=== PATIENT | female | born 1980 | race Caucasian/White ===

== ENCOUNTER 2025-02-07 06:18 | Inpatient (IN) ==
[2025-02-07 06:54] LABS: Hematocrit (blood only) 40.0 % (37.0-47.0); Hemoglobin 14.0 g/dl (12.0-16.0); Immature Granulocytes # (auto) 0.02 K/uL (0.01-0.20); Immature Granulocytes % (auto) 0.3 %; Mean Corpuscular Hemoglobin 32.5 pg (25.0-34.0); Mean Corpuscular Volume 92.8 fL (80.0-100.0); Platelet Count 224 K/uL (130-400); RDW Standard Deviation 46.5 fL (36.4-46.3); Red Blood Count 4.31 M/uL (4.20-5.40); White Blood Count 6.55 K/ul (4.8-10.8)
[2025-02-07 07:11] LABS: Alanine Aminotransferase 179.0 U/L (7-52); Albumin Globulin Ratio 1.6 (0.9-2); Albumin Level 4.3 gm/dl (3.4-5.0); Alkaline Phosphatase 157.0 U/L (34-104); Anion Gap 10.0 (3-11); Bilirubin,Total 0.7 mg/dl (0.2-1.0); Blood Urea Nitrogen 5.0 mg/dl (6-23); Calcium 8.8 mg/dl (8.6-10.3); Carbon Dioxide 25.0 mmol/L (21-32); Chloride 101.0 mmol/L (98-107); Creatinine Clr Calc Pharmacy 99.0 ml/min; Globulin 2.7 gm/dl (2.5-4.0); Glucose 104.0 mg/dl (70-99(Fasting)); Lipase 48.0 U/L (11-82); Potassium 3.9 mmol/L (3.5-5.1); Sodium 136.0 mmol/L (136-145); Total Protein 7.0 gm/dl (6.0-8.3)
--- NOTE | 2025-02-07 07:23 | Emergency Department Note ---
Impression & Plan Alcohol withdrawal, Auditory hallucinations ED Provider Note NAME: STEPHANIE HUANG AGE: 44 SEX: F : 1980 ARRIVES VIA: Walk-In INFORMANT: Patient, ED PROVIDER(S): Marietta Carr MD CHIEF COMPLAINT: Alcohol withdrawal HPI: This is a 44-year-old female with alcohol withdrawal. Patient states that she uses about 15 beers a day. She has noted increasing nausea and vomiting for the past 1 week. She was recently in outside hospital where she was given phenobarbital and Ativan for alcohol withdrawal. She states she has not been to drink her usual amount and is only drinking 6 beers per day. She feels shaky, anxious. She is concerned because she is hearing her parents think she is auditory hallucinations. She reports some slight abdominal pain as result of this. ROS: See above HPI for pertinent positives & negatives. A total of 10 systems reviewed and were otherwise negative. PAST MEDICAL HISTORY: See Below PAST SURGICAL HISTORY: See Below FAMILY HISTORY: See Below SOCIAL HISTORY: See Below HOME MEDICATIONS: See Below ALLERGIES: See Below VITALS: See Below PHYSICAL EXAMINATION: General: resting comfortably in no acute distress, tremulous, disheveled Head: Normocephalic and atraumatic Eyes: Normal inspection, extraocular muscles intact Ear, nose, throat: Normal external exam Neck: Normal range of motion Respiratory: lungs clear to auscultation bilaterally Cardiovascular: Regular rate/rhythm, no murmur GI: soft, nontender, no guarding or rebound Extremities: nontender, moves all extremities Neuro: The patient awake and alert, appropriately conversive, no focal deficits, symmetric faces Skin: Warm, dry, and intact MDM: This is a 44-year-old female presenting for alcohol withdrawal. Patient concerned alcohol withdrawal she is having hallucinations, tremulous. She was seen at outside hospital she had phenobarbital and Ativan. Will do screening blood work to assess for LFTs, lipase and etiology of patient's nausea vomiting and abdominal pain. - Bloodwork is reviewed showing no significant leukocytosis, anemia, electrolyte or creatinine abnormality. Alcohol level 110 -Does have a transaminitis, consistent with alcohol use disorder -Patient given 10 mg of Valium for withdrawal at this time. - Will admit the patient for alcohol withdrawal Differential diagnosis: Alcohol withdrawal, psychosis, schizophrenia Diagnostics interpreted by me: ECG: ECG independently interpreted by me with sinus tachycardia rate of 101 normal VA, normal QRS, normal QTc, no ST segment elevations consistent with STEMI criteria Cardiac Monitoring: An order was placed for continuous cardiac monitoring. The monitor shows a rate of 95 with sinus rhythm. 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 Other pulmonary embolism without acute cor pulmonale Alcohol induced acute pancreatitis Alcohol withdrawal seizure Surgical History (Updated 02/07/25 @ 09:24 by MANGO Holm) History of esophagogastroduodenoscopy (EGD) History of tonsillectomy H/O total hysterectomy Social History Smoking Status: Current every day smoker Tobacco Type: Cigarettes Cigarettes Per Day: 10; Hx Alcohol Use: Yes Alcohol type: beer Hx Substance Use: No Preferred Language: French Communication Ability: Effective 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 Beliefs That Will Affect Care: None Current Living Situation: Significant Other Other Information That Helps Us Care for You: No Feels Safe at Home: Yes Safety Concerns: Feels Safe At This Time Assistive Devices: Denture - Upper Allergies Allergies Allergy/AdvReac Type Severity Reaction Status Date / Time amoxicillin [From Augmentin] Allergy Rash Verified 02/07/25 11:02 clavulanic acid Allergy Rash Verified 02/07/25 11:02 [From Augmentin] Home Meds Home Medications Medication Instructions Recorded Confirmed buspirone 5 mg tablet 5 mg PO TID 02/07/25 02/07/25 doxepin 25 mg capsule 25 mg PO DAILY 02/07/25 02/07/25 duloxetine 30 mg capsule,delayed 30 mg PO DAILY 02/07/25 02/07/25 release escitalopram oxalate 5 mg tablet 5 mg PO DAILY 02/07/25 02/07/25 (Lexapro) fluticasone propionate 50 2 spray intranasal DAILY 02/07/25 02/07/25 mcg/actuation nasal spray,suspension folic acid 1 mg tablet 1 mg PO DAILY 02/07/25 02/07/25 gabapentin 100 mg capsule 100 - 200 mg PO UD 02/07/25 02/07/25 melatonin 5 mg tablet 5 mg PO HS 02/07/25 02/07/25 omeprazole 40 mg capsule,delayed 40 mg PO DAILYBB 02/07/25 02/07/25 release quetiapine 50 mg tablet 200 mg PO HS 02/07/25 02/07/25 Results & Data (ED) Vital Signs Vital Signs - 24 hr 02/07/25 06:22 02/07/25 06:35 02/07/25 06:37 Temperature 36.7 C 37.1 C Temperature Source Oral Axillary Pulse Rate 122 H 110 H Pulse Rate [Right Finger] 102 H Pulse Rhythm [Right Finger] Regular Respiratory Rate 20 16 Respiratory Effort / Characteristics Non-Labored Spontaneous Non-Labored Respiratory Depth Normal Normal Respiratory Pattern Regular Blood Pressure 115/91 Blood Pressure [Right Arm] 133/104 H Blood Pressure Mean 99 Blood Pressure Mean [Right Arm] 113 Blood Pressure Position Sitting Pulse Oximetry 95 95 Oxygen Delivery Method Room Air Room Air Oxygen Flow Rate Sepsis Recent Fever Within 48 Hours No Sepsis New/Unexplained Change in Mental Status N/A Sepsis Action Taken by Nursing No Action Required Oxygen Flow Rate - Titration Pulse Oximetry Post Tiitration 02/07/25 07:11 02/07/25 07:58 02/07/25 09:00 Temperature Temperature Source Pulse Rate Pulse Rate [Right Finger] 107 H 85 Pulse Rhythm [Right Finger] Respiratory Rate 18 18 Respiratory Effort / Characteristics Non-Labored Spontaneous Non-Labored Spontaneous Respiratory Depth Normal Normal Respiratory Pattern Regular Regular Blood Pressure Blood Pressure [Right Arm] 134/98 116/76 Blood Pressure Mean Blood Pressure Mean [Right Arm] 110 89 Blood Pressure Position Pulse Oximetry 92 87 L 100 Oxygen Delivery Method Room Air Room Air Nasal Cannula Room Air Oxygen Flow Rate 0 Sepsis Recent Fever Within 48 Hours Sepsis New/Unexplained Change in Mental Status Sepsis Action Taken by Nursing Oxygen Flow Rate - Titration 2 Pulse Oximetry Post Tiitration 98 02/07/25 10:27 Temperature Temperature Source Pulse Rate Pulse Rate [Right Finger] Pulse Rhythm [Right Finger] Respiratory Rate Respiratory Effort / Characteristics Respiratory Depth Respiratory Pattern Blood Pressure Blood Pressure [Right Arm] Blood Pressure Mean Blood Pressure Mean [Right Arm] Blood Pressure Position Pulse Oximetry 99 Oxygen Delivery Method Nasal Cannula Oxygen Flow Rate 2 Sepsis Recent Fever Within 48 Hours Sepsis New/Unexplained Change in Mental Status Sepsis Action Taken by Nursing Oxygen Flow Rate - Titration Pulse Oximetry Post Tiitration Laboratory Data 02/07/25 06:35 02/07/25 06:35 Lab Results 02/07/25 Range/Units 06:35 WBC 6.55 (4.8-10.8) K/ul RBC 4.31 (4.20-5.40) M/uL Hgb 14.0 (12.0-16.0) g/dl Hct 40.0 (37.0-47.0) % MCV 92.8 (80.0-100.0) fL MCH 32.5 (25.0-34.0) pg MCHC 35.0 (32.0-36.0) g/dL RDW Std Deviation 46.5 H (36.4-46.3) fL RDW Coeff of Barbara 13.6 (11.5-14.5) % Plt Count 224 (130-400) K/uL MPV 9.1 L (9.4-12.4) fL Immature Gran % (Auto) 0.3 % Neut % (Auto) 55.3 % Lymph % (Auto) 33.9 % Sumner % (Auto) 7.0 % Eos % (Auto) 2.4 % Baso % (Auto) 1.1 % Neut # (Auto) 3.62 (1.40-6.50) K/uL Lymph # (Auto) 2.22 (1.20-3.40) K/uL Sumner # (Auto) 0.46 (0.11-0.59) K/uL Eos # (Auto) 0.16 (0.00-0.50) K/uL Baso # (Auto) 0.07 (0.00-0.20) K/uL Immature Gran # (Auto) 0.02 (0.01-0.20) K/uL Sodium 136 (136-145) mmol/L Potassium 3.9 (3.5-5.1) mmol/L Chloride 101 (98-107) mmol/L Carbon Dioxide 25 (21-32) mmol/L Anion Gap 10 (3-11) BUN 5 L (6-23) mg/dl Creatinine 0.64 (0.6-1.2) mg/dl Est Cr Clr Drug Dosing 99.0 ml/min eGFR 110.31 BUN/Creatinine Ratio 7.8 L (10-20) Glucose 104 H (70-99(Fasting)) mg/dl Calcium 8.8 (8.6-10.3) mg/dl Total Bilirubin 0.7 (0.2-1.0) mg/dl AST 363 H (13-39) U/L ALT 179 H (7-52) U/L Alkaline Phosphatase 157 H (34-104) U/L Total Protein 7.0 (6.0-8.3) gm/dl Albumin 4.3 (3.4-5.0) gm/dl Globulin 2.7 (2.5-4.0) gm/dl Albumin/Globulin Ratio 1.6 (0.9-2) Lipase 48 (11-82) U/L Ethyl Alcohol mg/dL 110.2 H (<10.0) mg/dl Administered Medications Ketorolac Tromethamine (Ketorolac Tromethamine 15 Mg/Ml Vial) 10 mg IV NOW PRN PRN Reason: Headache Stop: 02/12/25 11:13 Last Admin: 02/07/25 13:21 Dose: 10 mg Documented By: SHIRA Nicotine (Nicotine 14 Mg/24 Hr Patch) 1 patch TD QAM [facility] 1928–1983 Stop: 03/09/25 12:59 Last Admin: 02/07/25 13:08 Dose: 1 patch Documented By: SHIRA Ondansetron HCl (Ondansetron Inj 2 Mg/Ml 2 Ml Vial) 4 mg IV Q6H PRN PRN Reason: Nausea Stop: 03/09/25 12:45 Last Admin: 02/07/25 13:17 Dose: 4 mg Documented By: SHIRA Phenobarbital Sodium (Phenobarbital Sodium 65 Mg/Ml Vial) 65 mg IM Q3H MORENA Stop: 02/07/25 16:31 Last Admin: 02/07/25 13:12 Dose: 65 mg Documented By: SHIRA Discontinued Medications Diazepam (Diazepam Inj 5 Mg/Ml 2 Ml Carp) 10 mg IV NOW STA Stop: 02/07/25 07:47 Last Admin: 02/07/25 07:57 Dose: 10 mg Documented By: MOIRA Thiamine HCl 100 mg/ Syringe 10 mls @ 2 mls/min IV NOW STA Stop: 02/07/25 10:35 Last Admin: 02/07/25 11:33 Dose: 2 mls/min Documented By: MOIRA Folic Acid 1 mg/ Syringe 10 mls @ 5 mls/min IV NOW STA Stop: 02/07/25 10:32 Last Admin: 02/07/25 11:29 Dose: 5 mls/min Documented By: MOIRA Phenobarbital Sodium (Phenobarbital Sodium 130 Mg/Ml Vial) 130 mg IM NOW STA Stop: 02/07/25 10:27 Last Admin: 02/07/25 11:01 Dose: 130 mg Documented By: MOIRA Discharge Plan Visit Data Chief Complaint: Alcohol Withdrawal Stated Complaint: ALC WITHDRAW, HALLUCIN, DIZZY, SHAKY ED Provider: Marietta Carr Discharge Problem: Alcohol withdrawal, Auditory hallucinations Patient Disposition: Admitted As Inpatient Condition: Fair Discharge Instructions Interventions: ED Discharge Assessment Last Done: 02/07/25 11:42 Discharge Problem: Alcohol withdrawal Qualifiers: Complication of substance-induced condition: with unspecified complication Q ualified Code(s): F10.939 - Alcohol use, unspecified with withdrawal, unspecified
--- NOTE | 2025-02-07 09:01 | History & Physical Report ---
Date of Service February 07, 2025 Assessment & Plan (1) Alcohol withdrawal: (2) Alcohol withdrawal seizure: (3) Auditory hallucinations: (4) Alcoholic hepatitis without ascites: (5) Anxiety disorder: (6) Esophageal reflux: (7) Tobacco use: Plan 44 year old female with PMH significant for alcohol abuse, multiple recent inpatient alcohol detoxifications, history of alcohol withdrawal seizures, history of alcohol induced pancreatitis, fatty liver, depression, anxiety, GERD, tobacco use, and history of PE who presents to the ED on 02/07/2025 for alcohol withdrawal symptoms x6 days. Alcohol withdrawal Hallucinations History of alcohol withdrawal seizures Patient presenting with alcohol withdrawal symptoms x6 days History of multiple recent inpatient alcohol detoxifications - recently admitted from 01/19-01/25/2025 at [facility], discharged on phenobarb taper, never completed as she started drinking again Drinks 10-12 light beers per day Last drink at 2300 on 02/06/2025 Ethyl alcohol level 110 this morning AWSS 8 in ED Start phenobarb protocol with ativan PRN IV folic acid and thiamine today and resume PO tomorrow Alcohol induced hepatitis Fatty liver Elevated LFTs with AST 363, ALT 179, alk phos 157 Likely secondary to alcohol use Monitor CMP Depression and anxiety Continue doxepin, duloxetine, seroquel, buspirone, lexapro Home gabapentin on hold while on phenobarb protocol GERD Continue PPI Tobacco use Nicotine patch Counseled on cessation History of PE CT PE on 01/02 at [facility] revealed tiny PE, placed on Heparin gtt x48 hrs Repeat CT PE on 01/04 revealed no definite PE Not on anticoagulation Follow up with Pulmonary scheduled on 02/21 for repeat imaging DVT Prophylaxis: SQ heparin Code Status: FULL CODE - As per discussion at bedside with the patient. PCP: Ishaan Maradiaga Disposition: admit to PCU Patient seen in collaboration with Dr Azul. Please see addendum. I spent a total of 75 minutes coordinating, documenting and providing care for this patient excluding time spent in the performance of separately billed services or time spent by another provider/QHP. Admission and Anticipated Discharge Date Admission Date: 02/07/2025 History of Present Illness Chief Complaint: alcohol withdrawal Primary Care Provider: Ishaan Maradiaga MD 44 year old female with PMH significant for alcohol abuse, multiple recent inpatient alcohol detoxifications, history of alcohol withdrawal seizures, history of alcohol induced pancreatitis, fatty liver, depression, anxiety, GERD, tobacco use, and history of PE who presents to the ED on 02/07/2025 for alcohol withdrawal symptoms x6 days. Patient reports visual and auditory hallucinations, poor appetite, vomiting, dehydration, tremors, photosensitivity, headache, and anxiety for the last 6 days. She reports she has been drinking 10-12 light beers per day since 01/25/2025 when she was discharged from [facility]. She was admitted there for alcohol withdrawal and was discharged on a phenobarbital taper. She reports she did not complete the taper because she started drinking again as soon as she got home. Notes she has been to rehab before at [facility]. Agreeable to talking to psych because she is not sure why she keeps going back to drinking. Denies blurry vision, chest pain, SOB, abdominal pain, dysuria. Reports she falls often but denies hitting her head. Lives with her boyfriend. Allergies Allergy/AdvReac Type Severity Reaction Status Date / Time amoxicillin [From Augmentin] Allergy Rash Verified 02/07/25 11:02 clavulanic acid Allergy Rash Verified 02/07/25 11:02 [From Augmentin] Home Medications Medication Instructions Recorded Confirmed Type buspirone 5 mg tablet 5 mg PO TID 02/07/25 02/07/25 History doxepin 25 mg capsule 25 mg PO DAILY 02/07/25 02/07/25 History duloxetine 30 mg capsule,delayed 30 mg PO DAILY 02/07/25 02/07/25 History release escitalopram oxalate 5 mg tablet 5 mg PO DAILY 02/07/25 02/07/25 History (Lexapro) fluticasone propionate 50 2 spray intranasal DAILY 02/07/25 02/07/25 History mcg/actuation nasal spray,suspension folic acid 1 mg tablet 1 mg PO DAILY 02/07/25 02/07/25 History gabapentin 100 mg capsule 100 - 200 mg PO UD 02/07/25 02/07/25 History melatonin 5 mg tablet 5 mg PO HS 02/07/25 02/07/25 History omeprazole 40 mg capsule,delayed 40 mg PO DAILYBB 02/07/25 02/07/25 History release quetiapine 50 mg tablet 200 mg PO HS 02/07/25 02/07/25 History Past Med/Surg History Problem List (Updated 02/07/25 @ 09:36 by MANGO Holm) Auditory hallucinations Tobacco use Anxiety disorder Alcoholic hepatitis without ascites Esophageal reflux Alcohol withdrawal Medical History (Updated 02/07/25 @ 09:36 by MANGO Holm) Alcohol use disorder, severe, dependence 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 Other pulmonary embolism without acute cor pulmonale Alcohol induced acute pancreatitis Alcohol withdrawal seizure Surgical History (Updated 02/07/25 @ 09:24 by MANGO Holm) History of esophagogastroduodenoscopy (EGD) History of tonsillectomy H/O total hysterectomy Social History Smoking Status: Current every day smoker Tobacco Type: Cigarettes Cigarettes Per Day: 10; Hx Alcohol Use: Yes Alcohol type: beer Hx Substance Use: No Preferred Language: Serbian Communication Ability: Effective 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 Beliefs That Will Affect Care: None Current Living Situation: Significant Other Other Information That Helps Us Care for You: No Feels Safe at Home: Yes Safety Concerns: Feels Safe At This Time Assistive Devices: Denture - Upper Review of Systems Review of Systems: All systems reviewed & are unremarkable except as noted in HPI & below Physical Exam Physical Exam: General/Psych: WD/WN, sitting up in bed, appears anxious, occasional tremors Head: normocephalic, atraumatic Eyes: normal inspection, PERRL, conjunctivae pink ENT: external ear and nose normal, oropharynx normal Neck: normal visual inspection, trachea midline Respiratory: normal respiratory effort, lungs clear to auscultation, no wheeze/rales/rhonchi, no accessory muscle use Cardiovascular: tachycardic rate and rhythm, no murmur/rub/gallop, no JVD Extremities: no cyanosis or clubbing, normal peripheral pulses, no BLE edema Abdomen/GI: normal bowel sounds, soft, tender on palpation of all quadrants Neurologic/MSK: A+Ox3, motor strength 5/5, moves all extremities Skin: no rashes, normal color, warm and dry Results & Data Results & Data Vital Signs (Past 12 Hours) Vital Signs Temp Pulse Pulse Resp BP BP Pulse Ox 02/07/25 07:58 87 L 02/07/25 07:11 107 H 18 134/98 92 02/07/25 06:37 37.1 C 102 H 16 133/104 H 95 02/07/25 06:35 110 H 02/07/25 06:22 36.7 C 122 H 20 115/91 95 O2 Del Method O2 Flow Rate 02/07/25 07:58 Room Air, Nasal Cannula 0 02/07/25 07:11 Room Air 02/07/25 06:37 Room Air 02/07/25 06:35 02/07/25 06:22 Room Air Laboratory Results Short CBC 02/07/25 Range/Units 06:35 WBC 6.55 (4.8-10.8) K/ul Hgb 14.0 (12.0-16.0) g/dl Hct 40.0 (37.0-47.0) % Plt Count 224 (130-400) K/uL BMP 02/07/25 06:35 Sodium 136 Potassium 3.9 Chloride 101 Carbon Dioxide 25 BUN 5 L Creatinine 0.64 Glucose 104 H Calcium 8.8 Liver Function 02/07/25 Range/Units 06:35 Total Bilirubin 0.7 (0.2-1.0) mg/dl AST 363 H (13-39) U/L ALT 179 H (7-52) U/L Alkaline Phosphatase 157 H (34-104) U/L Albumin 4.3 (3.4-5.0) gm/dl I have independently reviewed and interpreted patient's admitting labs including CBC, CMP, lipase, ethyl alcohol. ECG Additional Comments: I have independently reviewed and interpreted patient's admitting EKG which revealed: sinus tachycardia at a rate of 102bpm Code Status & VTE Plan Code Status Full Code
[2025-02-07] MEDS ORDERED: PHENobarbital PO Alcohol Withdrawal PO STA (10:26)
[2025-02-07] MEDS: FOLIC ACID 1 MG in SYRINGE 9.8 ML IV STA (11:29)
[2025-02-07] MEDS: THIAMINE HCL 100 MG in SYRINGE 9 ML IV STA (11:33)
--- NOTE | 2025-02-07 11:40 | Communication Note ---
Date of Service: February 07, 2025 Attending Addendum: Case reviewed with the advanced practitioner. I have personally performed a history and physical examination on the patient. I have reviewed the advanced practitioner's documentation on the date of service referenced in note, and I agree with, and take responsibility for the plan of care. please refer to her notes for full details patient seen and examined, records reviewed by myself as well on exam, patient seen resting in bed, comfortable RNs at bedside throughout whole encounter states she feels ok has mild anxiety, no active tremors, confusion does report hallucinations since Lexapro and buspirone started 2 weeks ago reports depression symptoms seems to be worsening but denies suicidal ideations no other symptoms VS noted and reviewed oriented x3, not in distress, speaks in sentences with no effort nor accessory muscle use normal rate, regular rhythm, no murmurs clear breath sounds bilaterally non distended, soft, nontender no bipedal edema, erythema, warmth no neuro deficits all labs, imaging noted and reviewed ASSESSMENT AND PLAN> ALCOHOL WITHDRAWAL alcohol withdrawal protocol including Phenobarbital taper DEPRESSION reporting increased hallucinations since Lexapro and risperidone started 2 weeks ago Consult psychiatry service other diagnoses and plan of care as per advanced practitioner's notes I spent a total of 40 minutes coordinating, documenting, and providing care for this patient, excluding time spent in the performance of separately billed services or time spent by another provider/QHP. Cristino Azul MD
--- NOTE | 2025-02-07 12:30 | Electrocardiogram Report ---
Test Reason : Blood Pressure : */* mmHG Vent. Rate : 102 BPM Atrial Rate : 102 BPM P-R Int : 144 ms QRS Dur : 76 ms QT Int : 344 ms P-R-T Axes : 57 56 65 degrees QTcB Int : 448 ms Sinus tachycardia Otherwise normal ECG No previous ECGs available Confirmed by Viral Sheets ([id number]) on 02/07/2025 12:30:51 PM Referred By: Confirmed By: Viral Sheets
[2025-02-07] MEDS ORDERED: LORazepam 1 MG TAB PO PRN ×2 (12:46)
[2025-02-07] MEDS ORDERED: PROMETHAZINE 12.5 MG/50.5 ML BAG IV PRN (12:50)
[2025-02-07] MEDS: NICOTINE 14 MG/24 HR PATCH TD SCH (13:08)
[2025-02-07] MEDS: ONDANSETRON INJ 2 MG/ML 2 ML VIAL IV PRN (13:17)
[2025-02-07] MEDS: KETOROLAC TROMETHAMINE 15 MG/ML VIAL IV PRN (13:21)
[2025-02-07] MEDS: busPIRone 5 MG TAB PO SCH (15:10)
[2025-02-07] MEDS: LORazepam 1 MG TAB PO PRN (15:16)
[2025-02-07] MEDS: HEPARIN SOD 5,000 UNIT/0.5 ML VIAL SQ SCH (20:30)
[2025-02-07] MEDS: MELATONIN 3 MG TAB PO SCH (21:30)
[2025-02-07] MEDS: COUGH DROP (SUGAR FREE) LOZ 24 LOZ/1 BOX BUCCAL PRN (21:30)
[2025-02-08 05:12] LABS: Hematocrit (blood only) 36.1 % (37.0-47.0); Hemoglobin 12.2 g/dl (12.0-16.0); Mean Corpuscular Hemoglobin 32.3 pg (25.0-34.0); Mean Corpuscular Volume 95.5 fL (80.0-100.0); Platelet Count 147 K/uL (130-400); RDW Standard Deviation 48.5 fL (36.4-46.3); Red Blood Count 3.78 M/uL (4.20-5.40); White Blood Count 5.24 K/ul (4.8-10.8)
[2025-02-08 05:29] LABS: Alanine Aminotransferase 109.0 U/L (7-52); Albumin Globulin Ratio 1.5 (0.9-2); Albumin Level 3.5 gm/dl (3.4-5.0); Alkaline Phosphatase 130.0 U/L (34-104); Anion Gap 7.0 (3-11); Bilirubin,Total 1.0 mg/dl (0.2-1.0); Blood Urea Nitrogen 4.0 mg/dl (6-23); Calcium 8.6 mg/dl (8.6-10.3); Carbon Dioxide 28.0 mmol/L (21-32); Chloride 100.0 mmol/L (98-107); Creatinine Clr Calc Pharmacy 90.9 ml/min; Globulin 2.3 gm/dl (2.5-4.0); Glucose 100.0 mg/dl (70-99(Fasting)); Potassium 3.7 mmol/L (3.5-5.1); Sodium 135.0 mmol/L (136-145); Total Protein 5.8 gm/dl (6.0-8.3)
--- NOTE | 2025-02-08 08:25 | Psychiatric Consultation ---
Date of Consultation February 08, 2025 Impression / Recommendations Impression Nazia Cardona is a 44-year-old female with a history of alcohol abuse, admitted on 02/07/25 for alcohol withdrawal. Consult is by the hospitalist service for hallucinations. The hallucinations have occurred exclusively in periods of withdrawal. The combination of visual and auditory hallucinations, along with some possible delirious features at home (when she was talking to herself and does describe so me confusion although she denied it initially) is consistent with possible DTs at home. However here, she has had no disorientation or confusion, so the diagnosis is primarily alcoholic hallucinosis rather than DTs for now. It is unlikely that the hallucinations will persist once she is through withdrawal. So the primary treatment would be adequate coverage of her withdrawal symptoms, as indicated by her AWSS score. I would avoid phenobarbital due to alcoholic hepatitis, and stick to Ativan which is metabolized outside the liver. If hallucinosis did recur and it was distressing to the patient, you could use low- dose Zyprexa 2.5 or 5 mg p.o. as needed. She will not need to be on an antipsychotic upon discharge however. We did also discussed the importance of psychotherapeutic support, and she would be best served by a dual diagnosis type treatment upon discharge. Patient is currently in a planning state of change regarding sobriety. She does refer report motivation for sobriety after discharge, but feels her anxiety may prevent her participation in treatment, as it has in the past. Psychiatric liaison discussed with her the possibility of a telehealth IOP as a first step, so patient would be able to participate at home where she is most comfortable. Patient was agreeable to this option, and psychiatric liaison will be following up with local programs for the patient. I also discussed with her her pattern of anxiety. While she describes years ago more generalized or possibly social anxiety, now she does have panic attacks as well as avoidance of triggers she believes will cause panic, and worry about having panic episodes. She meets criteria for panic disorder at this point, with agoraphobia. The first-line treatment for panic disorder are the SSRIs. She has recently started Lexapro, but has not been on it long enough to know if it has been helpful. There is been no notable side effects since starting it. I did recommend staying on the Lexapro, although I'd recommend increasing to 10 mg or so before discharge, which is a more typically effective dose in adults. As an augmentation an bridge strategy, we also discussed BuSpar versus mack apentin. Reviewed risks benefits and possible adverse effects of each option. Gabapentin does have the added benefit of some evidence supporting sobriety from alcohol. It's also used in some detox regimens, as it can decrease the benzo load required to adequately treat the withdrawal symptoms, and can prevent seizure during withdrawal. She feels it may have made her sedated, and prefers to take it only at night. I prefer to dose gabapentin at least twice a day, so we did discuss starting a lower dose in the a.m. (100 mg) and a more typical dose at at bedtime (300 mg). To minimize polypharmacy, I would recommend discontinuing the other psychiatric medications at this time. That includes buspar, Seroquel, doxepin and Cymbalta. She does report Seroquel has been helpful for sleep, she has chronic insomnia. Since she also reports gabapentin was sedating, I am hopeful she will not need additional sleep medication. Overall, I spent a total of 80 minutes on this patient's care, including review of chart, direct evaluation of the patient, counseling the patient, coordination with nursing, interdisciplinary team meeting, and documentation. (1) Alcohol withdrawal hallucinosis: (2) Panic disorder: (3) Alcohol use disorder, severe, dependence: Plan Recommendations: - no need for inpatient psychiatric admission at this time, given no SI, HI, active psychosis or poor self-care. - Continue alcohol withdrawal treatment as indicated by her AWSS score - start gabapentin 100 mg in AM and 300 mg nightly - continue Lexapro 5 mg. May want to increase to 10 mg prior to discharge, but I did wait to make sure she tolerates the gabapentin before increasing Lexapro, as both can cause sedation when it first initiated. - discontinue doxepin and Cymbalta and BuSpar, to minimize polypharmacy. - Discontinue Seroquel. If not sleeping well despite tolerating gabapentin, may revisit this in the future (either here or with outpatient provider) - psychiatric liaison will follow-up with patient regarding possible virtual IOP options in the area Psych History Identifying Data Nazia Cardona is a 44-year-old female with a history of alcohol abuse, admitted on 02/07/25 for alcohol withdrawal. Consult is by the hospitalist service for hallucinations. Psychiatric liaison did see the patient yesterday and gathered medication history. Based on discussion with the psychiatric liaison, and my own chart review, it appears that this patient has A history of alcohol abuse for 13 years, and more recently has been in and out of alcohol withdrawal for several weeks. she was at [facility] for inpatient D&A rehab in December for 2 weeks. She then had an admission to the hospital and was treated for alcohol withdrawal more recently in January, discharged on January 25. Reportedly during that stay, she was given phenobarbital (and possibly Ativan) taper to complete after discharge, which she did not follow through with. She has also been prescribed various psychiatric medications for depression and anxiety, with some notable polypharmacy. During her hospitalization in January, she was also newly prescribed BuSpar and Lexapro. For the last ~2 weeks, she has decreased her alcohol intake from her typical 15 beers a day down to 6 beers a day. During that time she has been experiencing auditory hallucinations intermittently. She believes she was hearing her parents. She also told the liaison she had intermittent visual hallucinations around when she was in a "dream state". She appeared to be talking out in her sleep as well according to her partner. In addition to the hallucinations, she has been experiencing worsening nausea, vomiting, tremor and anxiety over the past week. Her last drink was on 02/06/2025 at 2300. Her alcohol level in the emergency room was 110. She was admitted to the medical service and started on phenobarb and Ativan as needed for alcohol withdrawal. . She clarified that the visual hallucinations she was having started while she was recently in the hospital and actively detoxing. She saw her mom and then thought she saw her dad who spoke to her. She was also seeing spiders crawl on flanagan and hands at the curtain would talk to her. Then at home, she was noted to be talking to herself without realizing it, which would happen when she also felt "weird" describing dizziness, nausea and a faraway feeling. She denied confusion or disorientation though. Those moments would be brief and resolve quickly. She was talking in her sleep which is not typical for her, and it would wake her up. Sleep has been a struggle chronically, but worse when withdrawing. She reported that in the past, detoxes have been milder in severity. She does have a history of at least 1 withdrawal seizure in the past. This is the first time she has had hallucinations while withdrawing. Also discussed patient's longstanding history of anxiety. She says anxiety symptoms started when she was very young, worsened in her teenage years, and then escalated along with her escalating alcohol use since her late 20s. Prior to drinking, she described her anxiety as feeling nervous and then the mornings accompanied by palpitations and sweating. She also worried about being judged or disliked in social situations. She does describe a pattern of avoidance as her primary coping strategy, and acknowledge this has contributed to more her anxiety over time. In more recent years, she has developed panic attacks. She now primarily holley with anxiety by drinking. Anxiety has been worse during withdrawal periods. She said her mood has been declining recently related to how the anxiety and alcohol use has been impacting her functioning. She will be on her way somewhere and feel she has a turnaround to go home. Denies suicidal ideation. She is motivated for pursuing sobriety and treatment after discharge, but acknowledges that the agoraphobia makes it difficult to engage. Chief Complaint "[]". History of Present Illness Psychiatric liaison did see the patient yesterday and gathered medication history. Based on discussion with the psychiatric liaison, and my own chart review, it appears that this patient has A history of alcohol abuse for 13 years, and more recently has been in and out of alcohol withdrawal for several weeks. she was at [facility] for inpatient D&A rehab in December for 2 weeks. She then had an admission to the hospital and was treated for alcohol withdrawal more recently in January, discharged on January 25. Reportedly during that stay, she was given phenobarbital (and possibly Ativan) taper to complete after discharge, which she did not follow through with. She has also been prescribed various psychiatric medications for depression and anxiety, with some notable polypharmacy. During her hospitalization in January, she was also newly prescribed BuSpar and Lexapro. For the last ~2 weeks, she has decreased her alcohol intake from her typical 15 beers a day down to 6 beers a day. During that time she has been experiencing auditory hallucinations intermittently. She believes she was hearing her parents. She also told the liaison she had intermittent visual hallucinations around when she was in a "dream state". She appeared to be talking out in her sleep as well according to her partner. In addition to the hallucinations, she has been experiencing worsening nausea, vomiting, tremor and anxiety over the past week. Her last drink was on 02/06/2025 at 2300. Her alcohol level in the emergency room was 110. She was admitted to the medical service and started on phenobarb and Ativan as needed for alcohol withdrawal. She clarified that the visual hallucinations she was having started while she was recently in the hospital and actively detoxing. She saw her mom and then thought she saw her dad who spoke to her. She was also seeing spiders crawl on flanagan and hands at the curtain would talk to her. Then at home, she was noted to be talking to herself without realizing it, which would happen when she also felt "weird" describing dizziness, nausea and a faraway feeling. She denied confusion or disorientation though. Those moments would be brief and resolve quickly. She was talking in her sleep which is not typical for her, and it would wake her up. Sleep has been a struggle chronically, but worse when withdrawing. She reported that in the past, detoxes have been milder in severity. She does have a history of at least 1 withdrawal seizure in the past. This is the first time she has had hallucinations while withdrawing. Also discussed patient's longstanding history of anxiety. She says anxiety symptoms started when she was very young, worsened in her teenage years, and th en escalated along with her escalating alcohol use since her late 20s. Prior to drinking, she described her anxiety as feeling nervous and then the mornings accompanied by palpitations and sweating. She also worried about being judged or disliked in social situations. She does describe a pattern of avoidance as her primary coping strategy, and acknowledge this has contributed to more her anxiety over time. In more recent years, she has developed panic attacks. She now primarily holley with anxiety by drinking. Anxiety has been worse during withdrawal periods. She said her mood has been declining recently related to how the anxiety and alcohol use has been impacting her functioning. She will be on her way somewhere and feel she has a turnaround to go home. Denies suicidal ideation. She is motivated for pursuing sobriety and treatment after discharge, but acknowledges that the agoraphobia makes it difficult to engage. per nursing staff both in the ICU and 2 E. denied any observation of patient responding to internal stimuli. Patient had not reported any hallucinations to them either. They had not noted any bouts of confusion. Patient had been reporting increased anxiety, which usually correlated with changes in vitals suggesting withdrawal, and anxiety would improve after given Ativan. She required 1 mg x 2 so far this a.m. Past Psychiatric History Previous Psych History: Longstanding generalized anxiety, and more recently panic disorder with agoraphobia. No history of psychiatric treatment. Did report suicidal ideation "way in the past" and did not elaborate further. Per liaison, pt had reported SI while intoxicated and was subsequently hospitalized at [facility] 3 years ago. Denies suicidal ideation now Outpatient Services: none presently Previous Psych Admissions: see above History of Previous Suicide Attempt: No Past Medication Trials: Seroquel, Cymbalta, gabapentin, naltrexone, BuSpar, Lexapro, doxepin Additional Notes: Alcohol use has escalated since her late 20s. Reports she was drinking 6-15 beers or ciders a day recently. She does have a history of detox and rehab treatment at [facility]. History of withdrawal in the past including a seizure, but no previous DTs or hallucinosis prior to this episode. She was recently detoxed at a local hospital, and subsequently referred to an in person IOP program, but did not attend due to anxiety. Does report positive family history, stating "everyone on both sides" abuses substances. Allergies Allergy/AdvReac Type Severity Reaction Status Date / Time amoxicillin [From Augmentin] Allergy Rash Verified 02/07/25 11:02 clavulanic acid Allergy Rash Verified 02/07/25 11:02 [From Augmentin] Home Medications Medication Instructions Recorded Confirmed Type buspirone 5 mg tablet 5 mg PO TID 02/07/25 02/07/25 History doxepin 25 mg capsule 25 mg PO DAILY 02/07/25 02/07/25 History duloxetine 30 mg capsule,delayed 30 mg PO DAILY 02/07/25 02/07/25 History release escitalopram oxalate 5 mg tablet 5 mg PO DAILY 02/07/25 02/07/25 History (Lexapro) fluticasone propionate 50 2 spray intranasal DAILY 02/07/25 02/07/25 History mcg/actuation nasal spray,suspension folic acid 1 mg tablet 1 mg PO DAILY 02/07/25 02/07/25 History gabapentin 100 mg capsule 100 - 200 mg PO UD 02/07/25 02/07/25 History melatonin 5 mg tablet 5 mg PO HS 02/07/25 02/07/25 History omeprazole 40 mg capsule,delayed 40 mg PO DAILYBB 02/07/25 02/07/25 History release quetiapine 50 mg tablet 200 mg PO HS 02/07/25 02/07/25 History Patient History Medical History Alcohol use disorder, severe, dependence 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 Other pulmonary embolism without acute cor pulmonale Alcohol induced acute pancreatitis Alcohol withdrawal seizure Surgical History History of esophagogastroduodenoscopy (EGD) History of tonsillectomy H/O total hysterectomy Family History (Updated 02/08/25 @ 12:03 by Elvira Hull DO) Mother Anxiety Grandmother (Maternal) Anxiety Other Alcohol abuse Social History Smoking Status: Current every day smoker Tobacco Type: Cigarettes Cigarettes Per Day: 10; Hx Alcohol Use: Yes Alcohol type: beer Hx Substance Use: No Preferred Language: Macanese Communication Ability: Effective Bee Breeder Required: No Beliefs That Will Affect Care: None Current Living Situation: Significant Other Other Information That Helps Us Care for You: No Feels Safe at Home: Yes Safety Concerns: Feels Safe At This Time Assistive Devices: Denture - Upper Physical Exam Psychiatric: Orientation: alert, oriented x 3 and cooperative Apperance: appropriately dressed and appropriately groomed Eye Contact: good eye contact Motor Behavior: no abnormal motor movements; no psychomotor agitation, no psychomotor retardation and n tremor Speech: normal rate/rhythm/volume of speech Affect: + anxious affect, + constricted affect and mood congruent with affect Mood: + anxious mood Thought Process: goal directed thought process, linear/logical thought process and clear/coherent thought process Thought Content: no preoccupation, no obsessions and no delusions Suicidal Thoughts: denies suicidal thoughts, denies suicidal plan and denies suicidal intent Homicidal Thoughts: denies homicidal thoughts, denies homicidal plan and denies homicidal intent Hallucinations: no auditory hallucinations and no visual hallucinations none present since admission. Not responding to internal stimuli. Cognition: recent memory grossly intact, remote memory grossly intact, attention grossly intact and language grossly intact No distractibility, disorientation or confusion. Estimated Intelligence: consistent with education level Insight: good insight Judgment: good judgement Vital Signs (Past 24 Hours): Last Vital Signs Temp 36.5 C 02/08/25 04:10 Pulse 80 02/08/25 04:10 Resp 20 02/08/25 04:10 BP 133/96 02/08/25 04:10 Pulse Ox 94 02/08/25 04:10 O2 Del Method Room Air 02/08/25 04:10 O2 Flow Rate 2 02/07/25 11:00 Review of Systems Constitutional: No Weight Change, No Fever ENT/Mouth: No Hearing Changes, No Nasal Congestion, No sore throat, No Swallowing Difficulty Eyes: No Vision Changes Cardiovascular: No Chest Pain, No SOB, No Edema Respiratory: +Cough, No Wheezing, No Dyspnea Gastrointestinal: +Nausea, No Diarrhea, No Constipation Urinary: No Frequency, No Hematuria, No Urinary Incontinence, No Dysuria Musculoskeletal: No Arthralgias, No Myalgias, No Joint Stiffness, Skin: No Skin Lesions, No Pruritis, No Hair Changes, Neuro: No Weakness, No Numbness, No Paresthesias, +recent Dizziness (none now),+headache, No Coordination Changes, No Recent Falls Heme/Lymph: No Bruising, No Bleeding Endocrine: No Polyuria, No Polydipsia, No Temperature Intolerance Results & Data (PSY) Medications Administered Buspirone HCl (Buspirone 5 Mg Tab) 5 mg PO TID [facility] Stop: 03/09/25 13:59 Last Admin: 02/07/25 20:31 Dose: 5 mg Documented By: Admin: 02/07/25 15:10 Dose: 5 mg Documented By: SHIRA Heparin Sodium (Porcine) (Heparin Sod 5,000 Unit/0.5 Ml Vial) 5,000 units SQ Q12 MORENA Stop: 03/09/25 20:59 Last Admin: 02/07/25 20:30 Dose: 5,000 units Documented By: PAULA Ketorolac Tromethamine (Ketorolac Tromethamine 15 Mg/Ml Vial) 10 mg IV NOW PRN PRN Reason: Headache Stop: 02/12/25 11:13 Last Admin: 02/07/25 13:21 Dose: 10 mg Documented By: SHIRA Lorazepam (Lorazepam 2 Mg/1 Ml Vial) 1 mg IV UD PRN; Protocol PRN Reason: EtOH Withdrawal AWSS Score 6,7 Stop: 03/09/25 15:36 Last Admin: 02/07/25 20:30 Dose: 1 mg Documented By: PAULA Melatonin (Melatonin 3 Mg Tab) 3 mg PO HSZ MORENA Stop: 03/09/25 21:59 Last Admin: 02/07/25 21:30 Dose: 3 mg Documented By: PAULA Menthol (Cough Drop (Sugar Free) Simone 24 Simone/1 Box) 1 simone BUCCAL UD PRN PRN Reason: Sore Throat Stop: 03/09/25 21:10 Last Admin: 02/07/25 21:30 Dose: 1 simone Documented By: PAULA Nicotine (Nicotine 14 Mg/24 Hr Patch) 1 patch TD QAM MORENA Stop: 03/09/25 12:59 Last Admin: 02/07/25 13:08 Dose: 1 patch Documented By: SHIRA Ondansetron HCl (Ondansetron Inj 2 Mg/Ml 2 Ml Vial) 4 mg IV Q6H PRN PRN Reason: Nausea Stop: 03/09/25 12:45 Last Admin: 02/07/25 20:30 Dose: 4 mg Documented By: Admin: 02/07/25 13:17 Dose: 4 mg Documented By: SHIRA Pantoprazole Sodium (Pantoprazole 40 Mg Tab) 40 mg PO DAILYBB MORENA Stop: 03/10/25 06:29 Last Admin: 02/08/25 06:33 Dose: 40 mg Documented By: PAULA Phenobarbital (Phenobarbital 30 Mg Tab) 60 mg PO Q12H MORENA Stop: 02/08/25 16:31 Last Admin: 02/08/25 04:12 Dose: 60 mg Documented By: PAULA Quetiapine Fumarate (Quetiapine Fumarate 200 Mg Tab) 200 mg PO HS MORENA Stop: 03/09/25 20:59 Last Admin: 02/07/25 20:31 Dose: 200 mg Documented By: PAULA Coding Level of Care Code 41033 IN/OBS CONSULT LVL 5,80M Diagnoses Alcohol withdrawal hallucinosis F10.932 Panic disorder F41.0 Alcohol use disorder, severe, dependence F10.20
[2025-02-08] MEDS: FOLIC ACID 1 MG TAB PO SCH (09:34)
[2025-02-08] MEDS: ESCITALOPRAM OXALATE 10 MG TAB PO SCH (09:35)
[2025-02-08] MEDS: THIAMINE HCL 100 MG TAB PO SCH (09:49)
[2025-02-08] MEDS: DOXEPIN HCL 25 MG CAPSULE PO SCH (09:50)
[2025-02-08] MEDS: REMOVE NICODERM PATCH SCH (09:58)
--- NOTE | 2025-02-08 11:48 | Hospitalist Progress Note ---
Date of Service February 08, 2025 Assessment & Plan (1) Alcohol withdrawal: (2) Alcohol withdrawal seizure: (3) Auditory hallucinations: (4) Alcoholic hepatitis without ascites: (5) Anxiety disorder: (6) Esophageal reflux: (7) Tobacco use: Plan 44 year old female with PMH significant for alcohol abuse, multiple recent inpatient alcohol detoxifications, history of alcohol withdrawal seizures, history of alcohol induced pancreatitis, fatty liver, depression, anxiety, GERD, tobacco use, and history of PE who presents to the ED on 02/07/2025 for alcohol withdrawal symptoms x6 days. Alcohol withdrawal Hallucinations History of alcohol withdrawal seizures Patient presenting with alcohol withdrawal symptoms x6 days History of multiple recent inpatient alcohol detoxifications - recently admitted from 01/19-01/25/2025 at [facility], discharged on phenobarb taper, never completed as she started drinking again Drinks 10-12 light beers per day Last drink at 2300 on 02/06/2025 Ethyl alcohol level 110 on admission Continue on phenobarbital alcohol withdrawal protocol along with Ativan as needed Monitor for severe withdrawal Alcohol induced hepatitis Fatty liver Elevated LFTs with AST 363, ALT 179, alk phos 157 Likely secondary to alcohol use Depression and anxiety Continue doxepin, duloxetine, seroquel, buspirone, lexapro Home gabapentin on hold while on phenobarb protocol GERD Continue PPI Tobacco use Nicotine patch Counseled on cessation History of PE CT PE on 01/02 at [facility] revealed tiny PE, placed on Heparin gtt x48 hrs Repeat CT PE on 01/04 revealed no definite PE Not on anticoagulation Follow up with Pulmonary scheduled on 02/21 for repeat imaging DVT Prophylaxis: SQ heparin Code Status: FULL CODE PCP: Ishaan Maradiaga Please note the above document was generated using voice recognition software. It may contain grammatical, syntax or spelling errors. Any formal questions or concerns about the content, text or information contained within the body of this dictation should be directly addressed to the provider for clarification Admission and Anticipated Discharge Date Admission Date: February 07, 2025 Subjective Patient seen and examined at bedside. She is comfortable; not engaged. She reports she feels anxious; no auditory or visual hallucinations. Vital signs appear stable Review of Systems Review of Systems: All systems reviewed & are unremarkable except as noted in Subjective Physical Exam Physical Exam: Constitutional: Awake alert oriented x 3; not in distress. Respiratory: normal respiratory effort, lungs clear to auscultation, no wheeze, rales, rhonchi. Normal insp/exp effort, no accessory muscle use Cardiovascular: RRR, no murmur, no edema Vessels: no JVD or carotid bruit Chest: normal inspection of chest Abdomen: normal bowel sounds, soft, nontender, no hepatosplenomegaly Musculoskeletal: no cyanosis or clubbing, extremities motor strength 5/5 Skin: no rashes, warm and dry normal turgor Neurologic: PERRL, EOMI, accommodation nl, no face palsy, no dysarthria CN's II- XI intact bilaterally and moves all extremities. Tremors present Psychiatric: A+Ox3, euthymic affect Results & Data Results & Data Vital Signs (Past 12 Hours) Vital Signs Temp Pulse Pulse Resp BP BP BP 02/08/25 10:43 02/08/25 10:17 37 C 02/08/25 10:08 106 H 18 123/81 02/08/25 08:30 110 H 17 140/88 02/08/25 04:10 36.5 C 80 20 133/96 02/08/25 01:11 99 H Pulse Ox O2 Del Method 02/08/25 10:43 Room Air 02/08/25 10:17 02/08/25 10:08 96 Room Air 02/08/25 08:30 96 02/08/25 04:10 94 Room Air 02/08/25 01:11 (1) Alcohol withdrawal Complication of substance-induced condition: with unspecified complication Qualified Code(s): F10.939 - Alcohol use, unspecified with withdrawal, unspecified
[2025-02-09] MEDS: KETOROLAC TROMETHAMINE 15 MG/ML VIAL IV PRN (05:47)
[2025-02-09 06:14] LABS: Hematocrit (blood only) 35.9 % (37.0-47.0); Hemoglobin 12.2 g/dl (12.0-16.0); Immature Granulocytes # (auto) 0.02 K/uL (0.01-0.20); Immature Granulocytes % (auto) 0.4 %; Mean Corpuscular Hemoglobin 32.6 pg (25.0-34.0); Mean Corpuscular Volume 96.0 fL (80.0-100.0); Platelet Count 134 K/uL (130-400); RDW Standard Deviation 49.7 fL (36.4-46.3); Red Blood Count 3.74 M/uL (4.20-5.40); White Blood Count 5.41 K/ul (4.8-10.8)
[2025-02-09 07:02] LABS: Alanine Aminotransferase 72.0 U/L (7-52); Albumin Globulin Ratio 1.5 (0.9-2); Albumin Level 3.5 gm/dl (3.4-5.0); Alkaline Phosphatase 112.0 U/L (34-104); Anion Gap 8.0 (3-11); Bilirubin,Total 0.5 mg/dl (0.2-1.0); Blood Urea Nitrogen 8.0 mg/dl (6-23); Calcium 8.4 mg/dl (8.6-10.3); Carbon Dioxide 26.0 mmol/L (21-32); Chloride 104.0 mmol/L (98-107); Creatinine Clr Calc Pharmacy 95.3 ml/min; Globulin 2.3 gm/dl (2.5-4.0); Glucose 107.0 mg/dl (70-99(Fasting)); Potassium 3.5 mmol/L (3.5-5.1); Sodium 138.0 mmol/L (136-145); Total Protein 5.8 gm/dl (6.0-8.3)
--- NOTE | 2025-02-09 09:36 | Hospitalist Progress Note ---
Date of Service February 09, 2025 Assessment & Plan (1) Alcohol withdrawal: (2) Alcohol withdrawal seizure: (3) Auditory hallucinations: (4) Alcoholic hepatitis without ascites: (5) Anxiety disorder: (6) Esophageal reflux: (7) Tobacco use: Plan 44 year old female with PMH significant for alcohol abuse, multiple recent inpatient alcohol detoxifications, history of alcohol withdrawal seizures, history of alcohol induced pancreatitis, fatty liver, depression, anxiety, GERD, tobacco use, and history of PE who presents to the ED on 02/07/2025 for alcohol withdrawal symptoms x6 days. Alcohol withdrawal Hallucinations History of alcohol withdrawal seizures Patient presenting with alcohol withdrawal symptoms x6 days History of multiple recent inpatient alcohol detoxifications - recently admitted from 01/19-01/25/2025 at [facility], discharged on phenobarb taper, never completed as she started drinking again Drinks 10-12 light beers per day Last drink at 2300 on 02/06/2025 Ethyl alcohol level [address] her on Valium 10 mg every 6 hours; will wean off as tolerated. Continue to give Ativan as needed Alcohol induced hepatitis Elevated LFTs with AST 363, ALT 179, alk phos 157 Likely secondary to alcohol use Depression and anxiety Psychiatry consulted for comanagement; patient started on gabapentin 100 mg in a.m., 300 mg at bedtime. Doxepin, Cymbalta, BuSpar and Seroquel discontinued as per recommendation. Plan to increase Lexapro to 10 mg if she tolerates gabapentin GERD Continue PPI Tobacco use Nicotine patch Counseled on cessation History of PE CT PE on 01/02 at [facility] revealed tiny PE, placed on Heparin gtt x48 hrs Repeat CT PE on 01/04 revealed no definite PE Not on anticoagulation Follow up with Pulmonary scheduled on 02/21 for repeat imaging DVT Prophylaxis: SQ heparin Code Status: FULL CODE PCP: Ishaan Maradiaga Time spent evaluating patient, direct bedside care, chart review, placing orders, interpretation of diagnostic studies, discussion with consultants, patient, and family members, as well as other required patient management activities is 50 minutes Please note the above document was generated using voice recognition software. It may contain grammatical, syntax or spelling errors. Any formal questions or concerns about the content, text or information contained within the body of this dictation should be directly addressed to the provider for clarification Admission and Anticipated Discharge Date Admission Date: February 07, 2025 Subjective Patient seen and examined at bedside. She is comfortable; not in distress. Reports some anxiety, hallucination overnight. Review of Systems Review of Systems: All systems reviewed & are unremarkable except as noted in Subjective Physical Exam Physical Exam: Constitutional: Awake alert oriented x 3; not in distress. Tremors present in bilateral upper extremity Respiratory: normal respiratory effort, lungs clear to auscultation, no wheeze, rales, rhonchi. Normal insp/exp effort, no accessory muscle use Cardiovascular: RRR, no murmur, no edema Vessels: no JVD or carotid bruit Chest: normal inspection of chest Abdomen: normal bowel sounds, soft, nontender, no hepatosplenomegaly Musculoskeletal: no cyanosis or clubbing, extremities motor strength 5/5 Skin: no rashes, warm and dry normal turgor Neurologic: PERRL, EOMI, accommodation nl, no face palsy, no dysarthria CN's II- XI intact bilaterally and moves all extremities. Tremors present Psychiatric: A+Ox3, euthymic affect Results & Data Results & Data Vital Signs (Past 12 Hours) Vital Signs Temp Pulse Pulse Resp BP Pulse Ox O2 Del Method 02/09/25 07:50 89 02/09/25 07:26 36.7 C 98 H 18 119/74 96 Room Air 02/09/25 05:07 36.8 C 102 H 16 122/86 96 Room Air 02/08/25 23:17 81 02/08/25 23:06 Room Air 02/08/25 22:43 36.5 C 96 H 18 116/90 94 Room Air (1) Alcohol withdrawal Complication of substance-induced condition: with unspecified complication Qualified Code(s): F10.939 - Alcohol use, unspecified with withdrawal, unspecified
[2025-02-09] MEDS: GABAPENTIN 100 MG CAP PO SCH (10:07)
--- NOTE | 2025-02-09 18:39 | Critical Care Consultation ---
Date of Consultation February 09, 2025 Assessment & Plan (1) Alcohol use disorder, severe, dependence: (2) Alcohol withdrawal hallucinosis: (3) Auditory hallucinations: Plan Will admit the patient to the ICU for IV sedation. Will continue IV Phenobarbital, Benzodiazepines, and consider Precedex accordingly hoping to prevent DTs and seizures. Will continue multivitamins, including Thiamine and Folate hoping to provide prophylaxis against Wernicke's encephalopathy. Will attempt to provide adequate nutrition as tolerated and as permissible by her mental status. Restraints as needed to protect patient from self-harm and avoid pulling medical devices/IV catheters. History of Present Illness Reason for Consultation: Alcohol-withdrawal not responding to maximal doses of IV Phenobarbital allowed on medical wards Attending Physician: Luca Mulligan MD History of Present Illness The patient is a 44-year-old female who presented to the ED for evaluation and management of alcohol withdrawal. She reported a long-standing history of alcohol abuse, typically consuming up to 15 beers daily, but noted a recent reduction to 6 beers per day over the preceding two weeks. She described a six- day history of worsening withdrawal symptoms, including severe anxiety, tremors, nausea, vomiting, poor appetite, dehydration, photosensitivity, headache, and intermittent auditory and visual hallucinationsspecifically hearing her parents and experiencing dream-like visual phenomena. She also endorsed frequent falls but denied any head trauma, chest pain, SOB, abdominal pain, dysuria, or blurry vision. The patient had multiple recent inpatient alcohol detoxifications, including a two-week stay at [place] for D&A rehab in December and a hospital admission in early January for alcohol withdrawal, during which she was discharged on a phenobarbital taper, which she did not complete. She resumed drinking shortly after discharge. She had been treated with phenobarbital and Ativan both during her prior admission and on the day of presentation to the ED. Despite these interventions, she continued to experience severe withdrawal symptoms, including persistent tremors and anxiety. Her past medical history was significant for alcohol abuse, multiple recent inpatient alcohol detoxifications, alcohol withdrawal seizures, alcohol-induced pancreatitis, fatty liver, depression, anxiety, GERD, tobacco use, and a history of PE. At this time the patient denies active hallucinations, but remains severely tremulous and agitated. Allergies Allergy/AdvReac Type Severity Reaction Status Date / Time amoxicillin [From Augmentin] Allergy Rash Verified 02/07/25 11:02 clavulanic acid Allergy Rash Verified 02/07/25 11:02 [From Augmentin] Home Medications Medication Instructions Recorded Confirmed Type buspirone 5 mg tablet 5 mg PO TID 02/07/25 02/07/25 History doxepin 25 mg capsule 25 mg PO DAILY 02/07/25 02/07/25 History duloxetine 30 mg capsule,delayed 30 mg PO DAILY 02/07/25 02/07/25 History release escitalopram oxalate 5 mg tablet 5 mg PO DAILY 02/07/25 02/07/25 History (Lexapro) fluticasone propionate 50 2 spray intranasal DAILY 02/07/25 02/07/25 History mcg/actuation nasal spray,suspension folic acid 1 mg tablet 1 mg PO DAILY 02/07/25 02/07/25 History gabapentin 100 mg capsule 100 - 200 mg PO UD 02/07/25 02/07/25 History melatonin 5 mg tablet 5 mg PO HS 02/07/25 02/07/25 History omeprazole 40 mg capsule,delayed 40 mg PO DAILYBB 02/07/25 02/07/25 History release quetiapine 50 mg tablet 200 mg PO HS 02/07/25 02/07/25 History Patient History Medical History 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 Other pulmonary embolism without acute cor pulmonale Alcohol induced acute pancreatitis Alcohol withdrawal seizure Surgical History History of esophagogastroduodenoscopy (EGD) History of tonsillectomy H/O total hysterectomy Family History Mother Anxiety Grandmother (Maternal) Anxiety Other Alcohol abuse Social History Smoking Status: Current every day smoker Tobacco Type: Cigarettes Cigarettes Per Day: 10; Hx Alcohol Use: Yes Alcohol type: beer Hx Substance Use: No Preferred Language: [place] Communication Ability: Effective Eligibility Specialist Required: No Beliefs That Will Affect Care: None Current Living Situation: Significant Other Other Information That Helps Us Care for You: No Feels Safe at Home: Yes Safety Concerns: Feels Safe At This Time Assistive Devices: None Review of Systems Review of Systems: All systems reviewed & are unremarkable except as noted in HPI & below Physical Exam Physical Exam: General: In no acute distress, tremulous, agitated. Breathing room-air. Skin: Warm and dry to touch. Noobvious lesions. Eyes: Anicteric.Noconjunctival hyperemia or exudates.No periorbital edema. ENT: No oral thrush. No oropharyngeal erythema or exudates. Neck: No palpable masses or adenopathy. Respiratory: Normal breath sounds, no wheezing or crackles. No use of accessory muscles and no prolonged exhalation. Cardiac: Regular rhythm, no murmurs, no gallops, no rubs; could not appreciate JV pulse elevation. GI: Soft, nontender. Extremities No clubbing,no cyanosis,no edema. Neuro: No gross motor deficits. Tremulous, agitated, wringing her hands. Denies hallucinations. Results & Data Results & Data Vital Signs (Past 12 Hours) Vital Signs Temp Pulse Pulse Resp BP Pulse Ox O2 Del Method 02/09/25 16:00 36.6 C 97 H 18 108/70 97 Room Air 02/09/25 15:32 118 H 20 02/09/25 08:00 Room Air 02/09/25 07:50 89 02/09/25 07:26 36.7 C 98 H 18 119/74 96 Room Air Laboratory Results 02/09/25 05:43 WBC 5.41 RBC 3.74 L Hgb 12.2 Hct 35.9 L MCV 96.0 MCH 32.6 MCHC 34.0 RDW Std Deviation 49.7 H RDW Coeff of Barbara 14.2 Plt Count 134 MPV 9.7 Immature Gran % (Auto) 0.4 Neut % (Auto) 60.7 Lymph % (Auto) 30.5 Har[place]on % (Auto) 5.0 Eos % (Auto) 3.0 Baso % (Auto) 0.4 Neut # (Auto) 3.29 Lymph # (Auto) 1.65 [place]on # (Auto) 0.27 Eos # (Auto) 0.16 Baso # (Auto) 0.02 Immature Gran # (Auto) 0.02 Sodium 138 Potassium 3.5 Chloride 104 Carbon Dioxide 26 Anion Gap 8 BUN 8 Creatinine 0.61 Est Cr Clr Drug Dosing 95.3 eGFR 111.59 BUN/Creatinine Ratio 13.1 Glucose 107 H Calcium 8.4 L Total Bilirubin 0.5 D AST 76 H ALT 72 H Alkaline Phosphatase 112 H Total Protein 5.8 L Albumin 3.5 Globulin 2.3 L Albumin/Globulin Ratio 1.5 Medications Administered Home Medications Medication Instructions Recorded Confirmed Last Taken buspirone 5 mg tablet 5 mg PO TID 02/07/25 02/07/25 Unknown doxepin 25 mg capsule 25 mg PO DAILY 02/07/25 02/07/25 Unknown duloxetine 30 mg capsule,delayed 30 mg PO DAILY 02/07/25 02/07/25 Unknown release escitalopram oxalate 5 mg tablet 5 mg PO DAILY 02/07/25 02/07/25 Unknown (Lexapro) fluticasone propionate 50 2 spray intranasal DAILY 02/07/25 02/07/25 Unknown mcg/actuation nasal spray,suspension folic acid 1 mg tablet 1 mg PO DAILY 02/07/25 02/07/25 Unknown gabapentin 100 mg capsule 100 - 200 mg PO UD 02/07/25 02/07/25 Unknown melatonin 5 mg tablet 5 mg PO HS 02/07/25 02/07/25 Unknown omeprazole 40 mg capsule,delayed 40 mg PO DAILYBB 02/07/25 02/07/25 Unknown release quetiapine 50 mg tablet 200 mg PO HS 02/07/25 02/07/25 Unknown Active Medications Generic Name Dose Route Start Last Admin Trade Name Kenrick PRN Reason Stop Dose Admin Diazepam 10 mg 02/09/25 08:00 02/09/25 13:33 Diazepam 5 Mg Tablet PO 03/11/25 07:59 10 mg Q6H MORENA Administration Escitalopram Oxalate 5 mg 02/08/25 09:00 02/09/25 08:28 Escitalopram Oxalate 10 Mg Tab PO 03/10/25 08:59 5 mg DAILY MORENA Administration Folic Acid 1 mg 02/08/25 09:00 02/09/25 08:30 Folic Acid 1 Mg Tab PO 03/10/25 08:59 1 mg QAM MORENA Administration Gabapentin 100 mg 02/09/25 09:45 02/09/25 10:07 Gabapentin 100 Mg Cap PO 03/11/25 09:44 100 mg QAM MORENA Administration Heparin Sodium (Porcine) 5,000 units 02/07/25 21:00 02/09/25 08:30 Heparin Sod 5,000 Unit/0.5 Ml Vial SQ 03/09/25 20:59 5,000 units Q12 MORENA Administration Ketorolac Tromethamine 10 mg 02/07/25 11:14 02/08/25 10:16 Ketorolac Tromethamine 15 Mg/Ml Vial IV 02/12/25 11:13 10 mg NOW PRN Administration Headache Ketorolac Tromethamine 15 mg 02/07/25 12:51 02/09/25 13:33 Ketorolac Tromethamine 15 Mg/Ml Vial IV 02/12/25 12:50 15 mg Q6H PRN Administration moderate to severe pain Lorazepam 1 mg 02/07/25 15:37 02/08/25 15:20 Lorazepam 2 Mg/1 Ml Vial IV 03/09/25 15:36 1 mg UD PRN Administration EtOH Withdrawal AWSS Score 6,7 Protocol Lorazepam 2 mg 02/07/25 15:37 02/09/25 12:30 Lorazepam 2 Mg/1 Ml Vial IV 03/09/25 15:36 2 mg UD PRN Administration EtOH Withdrawal AWSS Score 8,9 Protocol Melatonin 3 mg 02/07/25 22:00 02/08/25 20:44 Melatonin 3 Mg Tab PO 03/09/25 21:59 3 mg HSZ MORENA Administration Menthol 1 simone 02/07/25 21:11 02/07/25 21:30 Cough Drop (Sugar Free) Simone 24 Simone/1 Box BUCCAL 03/09/25 21:10 1 simone UD PRN Administration Sore Throat Miscellaneous 1 each 02/08/25 08:59 02/09/25 08:30 Remove Nicoderm Patch N/A 03/10/25 08:58 1 each DAILY@0859 MORENA Administration Nicotine 1 patch 02/07/25 13:00 02/09/25 08:30 Nicotine 14 Mg/24 Hr Patch TD 03/09/25 12:59 1 patch QAM MORENA Administration Ondansetron HCl 4 mg 02/07/25 12:46 02/09/25 13:33 Ondansetron Inj 2 Mg/Ml 2 Ml Vial IV 03/09/25 12:45 4 mg Q6H PRN Administration Nausea Pantoprazole Sodium 40 mg 02/08/25 06:30 02/09/25 05:45 Pantoprazole 40 Mg Tab PO 03/10/25 06:29 40 mg DAILYBB MORENA Administration Phenobarbital Sodium 65 mg 02/07/25 10:26 02/09/25 17:04 Phenobarbital Sodium 65 Mg/Ml Vial IM 02/11/25 23:59 65 mg Q8H PRN Administration AWSS greater than 8 Coding Level of Care Code 03405 CRITICAL CARE 1ST 30-74M Additional Critical Care Time Additional 30min Critical Care Time: Yes - 08614 Total Critical Care Time: 80 This is a life/limb threatening event. This includes time spent evaluating patient, direct bedside care, chart review, placing orders, interpretation of diagnostic studies, discussion with consultants, patient, and/or family members regarding treatment decisions, as well as other required patient management activities. This time is exclusive of all separately-billable procedures, and teaching time and separate from and in addition to any other critical care service time. Diagnoses Alcohol use disorder, severe, dependence F10.20 Alcohol withdrawal hallucinosis F10.932 Auditory hallucinations R44.0 Additional Codes Critical Care Time - Additional 30min Critical Care Time: Yes - 19385 ([id number]) Time Spent (min) 80 Comment Review chart/ imaging studies, history/ physical, update patient, nurse, provider.
[2025-02-09] MEDS: GABAPENTIN 300 MG CAP PO SCH (20:49)
[2025-02-09] MEDS: THIAMINE HCL 250 MG in SODIUM CHLORIDE 0.9% 50 ML IV SCH (20:50)
[2025-02-10 05:35] LABS: Hematocrit (blood only) 36.5 % (37.0-47.0); Hemoglobin 12.3 g/dl (12.0-16.0); Mean Corpuscular Hemoglobin 32.5 pg (25.0-34.0); Mean Corpuscular Volume 96.6 fL (80.0-100.0); Platelet Count 136 K/uL (130-400); RDW Standard Deviation 49.3 fL (36.4-46.3); Red Blood Count 3.78 M/uL (4.20-5.40); White Blood Count 6.16 K/ul (4.8-10.8)
[2025-02-10 05:50] LABS: Alanine Aminotransferase 56.0 U/L (7-52); Albumin Globulin Ratio 1.2 (0.9-2); Albumin Level 3.4 gm/dl (3.4-5.0); Alkaline Phosphatase 108.0 U/L (34-104); Anion Gap 8.0 (3-11); Bilirubin,Total 0.5 mg/dl (0.2-1.0); Blood Urea Nitrogen 6.0 mg/dl (6-23); Calcium 8.7 mg/dl (8.6-10.3); Carbon Dioxide 27.0 mmol/L (21-32); Chloride 102.0 mmol/L (98-107); Creatinine Clr Calc Pharmacy 89.5 ml/min; Globulin 2.8 gm/dl (2.5-4.0); Glucose 93.0 mg/dl (70-99(Fasting)); Magnesium 1.8 mg/dl (1.7-2.4); Potassium 3.6 mmol/L (3.5-5.1); Sodium 137.0 mmol/L (136-145); Total Protein 6.2 gm/dl (6.0-8.3)
[2025-02-10] MEDS: POTASSIUM CHLORIDE CRTAB 20 MEQ TABCR PO STA (08:22)
--- NOTE | 2025-02-10 10:57 | Critical Care Progress Note ---
<Statement entered by Moises Avilez MD - 02/10/25 14:12> I, Moises Avilez MD, supervised and reviewed the physical exam, assessment, plan, and management as documented by the medical donation professional for this patient encounter. I discussed the case with them, confirmed the findings, and I concur with the proposed plan of care. I was available for consultation throughout the encounter and provided guidance as needed. I separately evaluated the patient for henson portions of the history and the exam. I was present during the critical portion of medical decision making, and I d iscussed the case with the medical donation professional . I agree with the findings and plan except for any additions/exceptions noted. Total time spent is greater than 50% in coordination of care (as documented) at patient's floor/unit and/or counseling patient, independent of time spent on separately-billable procedures: 55 minutes Date of Service February 10, 2025 Assessment & Plan (1) Alcohol use disorder, severe, dependence: (2) Panic disorder: (3) Alcohol withdrawal hallucinosis: (4) Auditory hallucinations: (5) Tobacco use: (6) Anxiety disorder: (7) Alcoholic hepatitis without ascites: (8) Esophageal reflux: (9) Alcohol withdrawal: Plan Admited to the ICU for close monitoring and possible IV sedation. Will continue IM Phenobarbital, Benzodiazepines, and consider Precedex accordingly hoping to prevent DTs and seizures. Will continue multivitamins, including Thiamine and Folate hoping to provide prophylaxis against Wernicke's encephalopathy. Will attempt to provide adequate nutrition as tolerated and as permissible by her mental status. Restraints as needed to protect patient from self-harm and avoid pulling medical devices/IV catheters. Not requiring Iv sedation until now. Hopefully downgrade this evening Admission and Anticipated Discharge Date Admission Date: February 07, 2025 Subjective Patient seen at bedside this morning. She reported she was feeling anxious, shaky and sweaty. Has severe tremor in bilateral upper extremities.Denies hallucinations at the moment. Review of Systems Review of Systems: All systems reviewed & are unremarkable except as noted in HPI & below Physical Exam Physical Exam: General: In no acute distress, tremulous, agitated. Breathing room-air. Skin: Warm and dry to touch. Noobvious lesions. Eyes: Anicteric.Noconjunctival hyperemia or exudates.No periorbital edema. ENT: No oral thrush. No oropharyngeal erythema or exudates. Neck: No palpable masses or adenopathy. Respiratory: Normal breath sounds, no wheezing or crackles. No use of accessory muscles and no prolonged exhalation. Cardiac: Regular rhythm, no murmurs, no gallops, no rubs; could not appreciate JV pulse elevation. GI: Soft, nontender. Extremities No clubbing,no cyanosis,no edema. Neuro: No gross motor deficits. Tremulous, agitated, wringing her hands. Denies hallucinations. Results & Data Results & Data Vital Signs (Past 12 Hours) Vital Signs Temp Pulse Pulse Resp BP Pulse Ox O2 Del Method 02/10/25 07:54 36.5 C 98 H 18 118/76 91 Room Air 02/10/25 06:00 36.5 C 76 24 131/87 98 Room Air 02/10/25 04:00 36.5 C 69 20 103/73 95 Room Air 02/10/25 03:00 74 19 Room Air 02/10/25 02:00 83 19 97/72 L 95 Room Air 02/09/25 23:52 85 Coding Level of Care Code 03513 SUB INP/OBS CARE 3/50MIN Diagnoses Alcohol use disorder, severe, dependence F10.20 Panic disorder F41.0 Alcohol withdrawal hallucinosis F10.932 Auditory hallucinations R44.0 Tobacco use Z72.0 Anxiety disorder F41.9 Alcoholic hepatitis without ascites K70.10 Esophageal reflux K21.9 Alcohol withdrawal F10.939 Complication of substance-induced condition: with unspecified complication Resident Activity Tracking Resident Involvement: Resident Care Provided Care Provided: Adult Hospital Medicine (9) Alcohol withdrawal Complication of substance-induced condition: with unspecified complication Qualified Code(s): F10.939 - Alcohol use, unspecified with withdrawal, unspecified
--- NOTE | 2025-02-10 11:22 | Hospitalist Progress Note ---
Date of Service February 10, 2025 Assessment & Plan (1) Alcohol withdrawal: (2) Alcohol withdrawal seizure: (3) Auditory hallucinations: (4) Alcoholic hepatitis without ascites: (5) Anxiety disorder: (6) Esophageal reflux: (7) Tobacco use: Plan 44 year old female with PMH significant for alcohol abuse, multiple recent inpatient alcohol detoxifications, history of alcohol withdrawal seizures, history of alcohol induced pancreatitis, fatty liver, depression, anxiety, GERD, tobacco use, and history of PE who presents to the ED on 02/07/2025 for alcohol withdrawal symptoms x6 days. Alcohol withdrawal Hallucinations History of alcohol withdrawal seizures Patient presenting with alcohol withdrawal symptoms x6 days History of multiple recent inpatient alcohol detoxifications - recently admitted from 01/19-01/25/2025 at [facility], discharged on phenobarb taper, never completed as she started drinking again Drinks 10-12 light beers per day Last drink at 2300 on 02/06/2025 Ethyl alcohol level 110 on admission Patient was admitted to medical floor; was started on alcohol withdrawal protocol with Valium, Ativan. She was also given IV phenobarbital without improvement in symptoms. Patient was transferred to ICU on 02/09 for more frequent medications/Precedex for severe alcohol withdrawal. She is currently placed on Valium as needed follow-up with phenobarbital. Continue to monitor for severe alcohol withdrawal Seizure precautions Alcohol induced hepatitis Elevated LFTs with AST 363, ALT 179, alk phos 157 Likely secondary to alcohol use Depression and anxiety Psychiatry consulted for comanagement; patient started on gabapentin 100 mg in a.m., 300 mg at bedtime. Doxepin, Cymbalta, BuSpar and Seroquel discontinued as per recommendation. Plan to increase Lexapro to 10 mg if she tolerates gabapentin GERD Continue PPI Tobacco use Nicotine patch Counseled on cessation History of PE CT PE on 01/02 at [facility] revealed tiny PE, placed on Heparin gtt x48 hrs Repeat CT PE on 01/04 revealed no definite PE Not on anticoagulation Follow up with Pulmonary scheduled on 02/21 for repeat imaging DVT Prophylaxis: SQ heparin Code Status: FULL CODE PCP: Ishaan Maradiaga Time spent evaluating patient, direct bedside care, chart review, placing orders, interpretation of diagnostic studies, discussion with consultants, patient, and family members, as well as other required patient management activities is 50 minutes Please note the above document was generated using voice recognition software. It may contain grammatical, syntax or spelling errors. Any formal questions or concerns about the content, text or information contained within the body of this dictation should be directly addressed to the provider for clarification Admission and Anticipated Discharge Date Admission Date: February 07, 2025 Subjective Patient seen and examined at bedside. She continues to feel anxious, has tremors.She is appropriately answering questions. Review of Systems Review of Systems: All systems reviewed & are unremarkable except as noted in Subjective Physical Exam Physical Exam: Constitutional: Awake alert oriented x 3; not in distress. Tremors present in bi lateral upper extremity Respiratory: normal respiratory effort, lungs clear to auscultation, no wheeze, rales, rhonchi. Normal insp/exp effort, no accessory muscle use Cardiovascular: RRR, no murmur, no edema Vessels: no JVD or carotid bruit Chest: normal inspection of chest Abdomen: normal bowel sounds, soft, nontender, no hepatosplenomegaly Musculoskeletal: no cyanosis or clubbing, extremities motor strength 5/5 Skin: no rashes, warm and dry normal turgor Neurologic: PERRL, EOMI, accommodation nl, no face palsy, no dysarthria CN's II- XI intact bilaterally and moves all extremities. Tremors present Psychiatric: A+Ox3, euthymic affect Results & Data Results & Data Vital Signs (Past 12 Hours) Vital Signs Temp Pulse Pulse Resp BP Pulse Ox O2 Del Method 02/10/25 10:46 36.7 C 115 H 17 117/83 97 Room Air 02/10/25 07:54 36.5 C 98 H 18 118/76 91 Room Air 02/10/25 06:00 36.5 C 76 24 131/87 98 Room Air 02/10/25 04:00 36.5 C 69 20 103/73 95 Room Air 02/10/25 03:00 74 19 Room Air 02/10/25 02:00 83 19 97/72 L 95 Room Air 02/09/25 23:52 85 (1) Alcohol withdrawal Complication of substance-induced condition: with unspecified complication Qualified Code(s): F10.939 - Alcohol use, unspecified with withdrawal, unspecified
[2025-02-10] MEDS: LORazepam 1 MG TAB PO STA (12:48)
[2025-02-11 05:24] LABS: Hematocrit (blood only) 35.0 % (37.0-47.0); Hemoglobin 11.5 g/dl (12.0-16.0); Immature Granulocytes # (auto) 0.02 K/uL (0.01-0.20); Immature Granulocytes % (auto) 0.4 %; Mean Corpuscular Hemoglobin 32.5 pg (25.0-34.0); Mean Corpuscular Volume 98.9 fL (80.0-100.0); Platelet Count 138 K/uL (130-400); RDW Standard Deviation 52.7 fL (36.4-46.3); Red Blood Count 3.54 M/uL (4.20-5.40); White Blood Count 5.23 K/ul (4.8-10.8)
[2025-02-11 05:41] LABS: Anion Gap 7.0 (3-11); Blood Urea Nitrogen 9.0 mg/dl (6-23); Calcium 8.6 mg/dl (8.6-10.3); Carbon Dioxide 29.0 mmol/L (21-32); Chloride 109.0 mmol/L (98-107); Creatinine Clr Calc Pharmacy 93.8 ml/min; Glucose 123.0 mg/dl (70-99(Fasting)); Potassium 4.1 mmol/L (3.5-5.1); Sodium 145.0 mmol/L (136-145)
[2025-02-11 09:32] VITALS: PULSE 87; RESP 18; TEMP 97.7; O2SAT 97
[2025-02-11 11:10] VITALS: BP 99/72
--- NOTE | 2025-02-11 11:10 | Discharge Summary ---
Date of Service February 11, 2025 Admission HPI Per Admitting Provider 44 year old female with PMH significant for alcohol abuse, multiple recent inpatient alcohol detoxifications, history of alcohol withdrawal seizures, history of alcohol induced pancreatitis, fatty liver, depression, anxiety, GERD, tobacco use, and history of PE who presents to the ED on 02/07/2025 for alcohol withdrawal symptoms x6 days. Patient reports visual and auditory hallucinations, poor appetite, vomiting, dehydration, tremors, photosensitivity, headache, and anxiety for the last 6 days. She reports she has been drinking 10-12 light beers per day since 01/25/2025 when she was discharged from [facility]. She was admitted there for alcohol withdrawal and was discharged on a phenobarbital taper. She reports she did not complete the taper because she started drinking again as soon as she got home. Notes she has been to rehab before at [facility]. Agreeable to talking to psych because she is not sure why she keeps going back to drinking. Denies blurry vision, chest pain, SOB, abdominal pain, dysuria. Reports she falls often but denies hitting her head. Lives with her boyfriend. Admission Exam Per Admitting Provider General/Psych: WD/WN, sitting up in bed, appears anxious, occasional tremors Head: normocephalic, atraumatic Eyes: normal inspection, PERRL, conjunctivae pink ENT: external ear and nose normal, oropharynx normal Neck: normal visual inspection, trachea midline Respiratory: normal respiratory effort, lungs clear to auscultation, no wheeze/rales/rhonchi, no accessory muscle use Cardiovascular: tachycardic rate and rhythm, no murmur/rub/gallop, no JVD Extremities: no cyanosis or clubbing, normal peripheral pulses, no BLE edema Abdomen/GI: normal bowel sounds, soft, tender on palpation of all quadrants Neurologic/MSK: A+Ox3, motor strength 5/5, moves all extremities Skin: no rashes, normal color, warm and dry Principal Diagnosis Alcohol withdrawal Alcohol use disorder Discharge Exam Constitutional: Awake alert oriented x 3; not in distress. no tremors Respiratory: normal respiratory effort, lungs clear to auscultation, no wheeze, rales, rhonchi. Normal insp/exp effort, no accessory muscle use Cardiovascular: RRR, no murmur, no edema Vessels: no JVD or carotid bruit Chest: normal inspection of chest Abdomen: normal bowel sounds, soft, nontender, no hepatosplenomegaly Musculoskeletal: no cyanosis or clubbing, extremities motor strength 5/5 Skin: no rashes, warm and dry normal turgor Neurologic: PERRL, EOMI, accommodation nl, no face palsy, no dysarthria CN's II- XI intact bilaterally and moves all extremities. Psychiatric: A+Ox3, euthymic affect Discharge Data Allergies Allergy/AdvReac Type Severity Reaction Status Date / Time amoxicillin [From Augmentin] Allergy Rash Verified 02/07/25 11:02 clavulanic acid Allergy Rash Verified 02/07/25 11:02 [From Augmentin] Consultations 02/07/25 10:17 ED Decision to Admit Stat 02/09/25 08:18 Consult Behavioral Health Liaison Routine 02/09/25 17:01 Consult Lead [facility] [employer]ider Routine Hospital Course (1) Alcohol withdrawal: (2) Alcohol withdrawal seizure: (3) Auditory hallucinations: (4) Alcoholic hepatitis without ascites: (5) Anxiety disorder: (6) Esophageal reflux: (7) Tobacco use: Plan 44 year old female with PMH significant for alcohol abuse, multiple recent inpatient alcohol detoxifications, history of alcohol withdrawal seizures, history of alcohol induced pancreatitis, fatty liver, depression, anxiety, GERD, tobacco use, and history of PE who presents to the ED on 02/07/2025 for alcohol withdrawal symptoms x6 days. Alcohol withdrawal Alcohol use disorder Patient presenting with alcohol withdrawal symptoms x6 days History of multiple recent inpatient alcohol detoxifications - recently admitted from 01/19-01/25/2025 at [facility], discharged on phenobarb taper, never completed as she started drinking again Drinks 10-12 light beers per day Last drink at 2300 on 02/06/2025 Ethyl alcohol level 110 on admission Patient was admitted to medical floor; was started on alcohol withdrawal protocol with Valium, Ativan. She was also given IV phenobarbital without improvement in symptoms. Patient was transferred to ICU on 02/09 for more frequent medications/Precedex for severe alcohol withdrawal. Patient's symptoms improved during the hospitalization. Discussion was done with her regarding alcohol rehab which she did not want to do. Multiple discussion was done regarding continuation of the alcohol. She verbalized understanding. Patient was discharged home with instructions to follow-up with PCP. Alcohol induced hepatitis- LFT gradually improved during the hospitalization. Depression and anxiety Psychiatry consulted for comanagement; patient started on gabapentin 100 mg in a.m., 300 mg at bedtime. Doxepin, Cymbalta, BuSpar and Seroquel discontinued as per recommendation. Lexapro increased to 10mg once a day at discharge. Please note the above document was generated using voice recognition software. It may contain grammatical, syntax or spelling errors. Any formal questions or concerns about the content, text or information contained within the body of this dictation should be directly addressed to the provider for clarification Total Time Total Time Spent Total Time Spent (In Minutes): 45 Total Time Includes: Examination of the Patient, Discharge Planning, Medication Reconciliation, Communication With Other Providers and Other Discharge Plan Discharge Items Patient Disposition: Home - Self-Care Reason For Visit: ALC WITHDRAW, HALLUCIN, DIZZY, SHAKY Discharge Diagnosis: Alcohol withdrawal Condition on Discharge: Fair Activity: Resume your previous activity Non-emergency contact: Primary Care Provider Call non-emergency contact if: you have any medication questions and your symptoms worsen Follow-up/Referrals: Ishaan Maradiaga MD [Primary Care Provider] - Diet: Regular Addtl Attending Provider Instructions: You were admitted to the hospital with you admitted to the hospital with alcohol withdrawal. You underwent alcohol withdrawal protocol during the hospitalization with medication. Please to stop drinking alcohol. You are evaluated by psychiatry. They recommended following medication changes; Start taking Lexapro 10 mg once a day Start taking gabapentin 100 mg in the morning and 300 mg at night. Stop taking buspirone, doxepin, duloxetine, Seroquel. Please follow-up with your primary care doctor next week Pending Studies at Discharge: No Stand-Alone Forms: My [facility] flaregames, Smoking Cessation Medications and DC Order Prescriptions: New gabapentin 300 mg Capsule 300 mg PO HS Qty: 30 0RF gabapentin 100 mg Capsule 100 mg PO QAM Qty: 30 0RF Continued omeprazole 40 mg capsule,delayed release(DR/EC) 40 mg PO DAILYBB folic acid 1 mg tablet 1 mg PO DAILY fluticasone propionate 50 mcg/actuation spray,suspension 2 spray INTRANASAL DAILY melatonin 5 mg tablet 5 mg PO HS Changed escitalopram oxalate [Lexapro] 5 mg Tablet 10 mg PO DAILY Qty: 0 0RF Discontinued doxepin 25 mg capsule 25 mg PO DAILY gabapentin 100 mg capsule 100 - 200 mg PO UD Rx Instructions: 1 capsule twice daily and 2 capsules HS duloxetine 30 mg capsule,delayed release(DR/EC) 30 mg PO DAILY quetiapine 50 mg tablet 200 mg PO HS buspirone 5 mg Tablet 5 mg PO TID Discharge Orders: Discharge Order (Routine); Ordered 02/11/25 Ordered By: Luca Mulligan Admission Data Admit Date/Time: 02/07/25 10:35 Attending Provider: Luca Mulligan Admit Provider: Cristino Azul Primary Care Provider: Ishaan Maradiaga Other Providers: Cristino Azul; Moises Avilez Other Interventions: Discharge Summary Assessment (RN) Last Done: 02/11/25 11:10
== END 2025-02-11 11:25 | disposition home or self-care (01) | DRG 897 ==
LOC: ED 06:18 → 1E 10:35 → SUATTDRO 10:35 → 1E 11:42 → 2E 02-08 10:01 → 1E 02-09 18:13